=== PATIENT | male | born 1970 | race African-American/Black ===

== ENCOUNTER 2017-08-29 18:49 | Emergency (ER) | payer MEDICAID, OTHER ==
[~2017-08-29] VITALS: Ht 188 cm; Wt 108.9 kg
[2017-08-29 19:00] VITALS: BP 189/88
== END 2017-08-29 20:18 | disposition home or self-care (01) ==
LOC: ER 18:49 → EDBD 18:49 → ER 20:18
DX: F19.10 Other psychoactive substance abuse, uncomplicated (principal); F17.210 Nicotine dependence, cigarettes, uncomplicated
CPT/HCPCS: 93005

== ENCOUNTER → 2017-12-09 | Emergency (ER) | payer MEDICAID | END | disposition left against medical advice (07) | LOC: ER 00:10 | DX: R05 Cough (principal); Z53.21 Procedure and treatment not carried out due to patient leaving prior to being seen by health care provider ==